=== PATIENT | male | born 1945 | race Caucasian/White ===

== ENCOUNTER 2017-11-24 12:04 | Emergency (ER) | payer MEDICARE, MEDICAID ==
[~2017-11-24] VITALS: Ht 182.9 cm; Wt 81.1 kg
[2017-11-24] MEDS ORDERED: SODIUM CHLORIDE 0.9% 1,000ML IVBOLUS ONE ×2 (13:00→14:00)
[2017-11-24 13:05] LABS: BASOPHILS # (AUTO) 0.06 x10^3/uL (0-0.1); BASOPHILS % (AUTO) 1 % (0-1); EOSINOPHILS # (AUTO) 0.05 x10^3/uL (0-0.4); EOSINOPHILS % (AUTO) 0 % (1-7); LYMPHOCYTES # (AUTO) 1.26 x10^3/uL (1-3.4); LYMPHOCYTES % (AUTO) 11 % (22-44); MD NO; MEAN CORPUSCULAR HEMOGLOBIN 31.4 pg (27.5-34.5); MEAN CORPUSCULAR HGB CONC 33.4 g/dL (33.2-36.2); MEAN CORPUSCULAR VOLUME 94.1 fL (81-97); MEAN PLATELET VOLUME 7.8 fL (7.4-10.4); MONOCYTES # (AUTO) 0.83 x10^3/uL (0.2-0.8); MONOCYTES % (AUTO) 7 % (2-9); NEUTROPHILS # (AUTO) 9.05 x10^3/uL (1.8-6.8); NEUTROPHILS % (AUTO) 81 % (42-75); PLATELET COUNT 258 x10^3/uL (130-400); RED BLOOD COUNT 4.54 x10^6/uL (4.38-5.82); RED CELL DISTRIBUTION WIDTH 13.7 % (9.4-14.8)
[2017-11-24 13:15] LABS: ANION GAP 11 mmol/L (5-15); CALCIUM 8.7 mg/dL (8.5-10.1); CHLORIDE 103 mmol/L (98-107); CREATININE 0.69 mg/dL (0.7-1.3)
[2017-11-24 13:18] LABS: TROPONIN I < 0.015 ng/mL (0.000-0.045)
[2017-11-24 14:12] LABS: RAPID INFLUENZA A Negative (Negative); RAPID INFLUENZA B Negative (Negative)
[2017-11-24] MEDS ORDERED: AZITHROMYCIN 500 MG in SODIUM CHLORIDE 0.9% 250 ML IV ONE (15:00)
[2017-11-24 15:52] VITALS: BP 132/88
== END 2017-11-24 16:31 | disposition home or self-care (01) ==
LOC: ED 14:28
DX: J20.8 Acute bronchitis due to other specified organisms (principal); B96.89 Other specified bacterial agents as the cause of diseases classified elsewhere; I10 Essential (primary) hypertension; F17.200 Nicotine dependence, unspecified, uncomplicated
CPT/HCPCS: 36415; 71045; 80048; 82040; 83605; 84145; 84484; 85025; 87040; 87400; 96361; 96365; 99285; J0456; J7030; J7050

== ENCOUNTER 2018-03-27 14:02 | Emergency (ER) | payer MEDICARE, MEDICAID ==
[~2018-03-27] VITALS: Ht 182.9 cm; Wt 75.1 kg
[2018-03-27 14:13] VITALS: BP 136/81
[2018-03-27 14:37] LABS: BASOPHILS # (AUTO) 0.04 x10^3/uL (0-0.1); BASOPHILS % (AUTO) 0 % (0-1); EOSINOPHILS # (AUTO) 0.01 x10^3/uL (0-0.4); EOSINOPHILS % (AUTO) 0 % (1-7); LYMPHOCYTES # (AUTO) 0.89 x10^3/uL (1-3.4); LYMPHOCYTES % (AUTO) 8 % (22-44); MD NO; MEAN CORPUSCULAR HEMOGLOBIN 31.8 pg (27.5-34.5); MEAN CORPUSCULAR HGB CONC 33.7 g/dL (33.2-36.2); MEAN CORPUSCULAR VOLUME 94.4 fL (81-97); MEAN PLATELET VOLUME 7.5 fL (7.4-10.4); MONOCYTES # (AUTO) 0.39 x10^3/uL (0.2-0.8); MONOCYTES % (AUTO) 3 % (2-9); NEUTROPHILS # (AUTO) 10.16 x10^3/uL (1.8-6.8); NEUTROPHILS % (AUTO) 89 % (42-75); PLATELET COUNT 226 x10^3/uL (130-400); RED BLOOD COUNT 4.57 x10^6/uL (4.38-5.82); RED CELL DISTRIBUTION WIDTH 13.9 % (9.4-14.8)
[2018-03-27 14:46] LABS: ALANINE AMINOTRANSFERASE 49 U/L (12-78); ALBUMIN 3.3 g/dL (3.4-5.0); ANION GAP 8 mmol/L (5-15); CALCIUM 8.6 mg/dL (8.5-10.1); CHLORIDE 105 mmol/L (98-107); CREATININE 1.03 mg/dL (0.7-1.3)
[2018-03-27 14:50] LABS: ALKALINE PHOSPHATASE 72 U/L (45-117); BILIRUBIN,TOTAL 0.3 mg/dL (0.2-1.0); TROPONIN I < 0.015 ng/mL (0.000-0.045)
== END 2018-03-27 15:27 | disposition home or self-care (01) ==
LOC: ED 15:15
DX: J06.9 Acute upper respiratory infection, unspecified (principal); I10 Essential (primary) hypertension; J43.9 Emphysema, unspecified; F17.200 Nicotine dependence, unspecified, uncomplicated
CPT/HCPCS: 36415; 71046; 80053; 83880; 84484; 85025; 93005; 99285

== ENCOUNTER 2018-07-25 08:38 | Emergency (ER) | payer MEDICARE, MEDICAID ==
[~2018-07-25] VITALS: Ht 182.9 cm; Wt 77.0 kg
[2018-07-25] MEDS ORDERED: KETOROLAC 30 MG/1 ML ONE (09:18)
[2018-07-25] MEDS ORDERED: KETOROLAC 30 MG/1 ML IM ONE (09:30)
[2018-07-25 09:44] VITALS: BP 149/83
[2018-07-25 10:19] LABS: BASOPHILS # (AUTO) 0.07 x10^3/uL (0-0.1); BASOPHILS % (AUTO) 1 % (0-1); EOSINOPHILS # (AUTO) 0.19 x10^3/uL (0-0.4); EOSINOPHILS % (AUTO) 2 % (1-7); LYMPHOCYTES % (AUTO) 5 % (22-44); MD NO; MEAN CORPUSCULAR HEMOGLOBIN 31.9 pg (27.5-34.5); MEAN CORPUSCULAR HGB CONC 33.8 g/dL (33.2-36.2); MEAN CORPUSCULAR VOLUME 94.2 fL (81-97); MEAN PLATELET VOLUME 7.8 fL (7.4-10.4); MONOCYTES # (AUTO) 0.27 x10^3/uL (0.2-0.8); MONOCYTES % (AUTO) 3 % (2-9); NEUTROPHILS # (AUTO) 8.68 x10^3/uL (1.8-6.8); NEUTROPHILS % (AUTO) 89 % (42-75); PLATELET COUNT 281 x10^3/uL (130-400); RED BLOOD COUNT 4.86 x10^6/uL (4.38-5.82); RED CELL DISTRIBUTION WIDTH 13.9 % (9.4-14.8)
[2018-07-25 10:21] LABS: ALBUMIN 3.6 g/dL (3.4-5.0); ANION GAP 8 mmol/L (5-15); CALCIUM 8.7 mg/dL (8.5-10.1); CHLORIDE 105 mmol/L (98-107); CREATININE 0.91 mg/dL (0.7-1.3)
[2018-07-25 10:25] LABS: TROPONIN I < 0.015 ng/mL (0.000-0.045)
[2018-07-25] MEDS ORDERED: OMNIPAQUE 350 MG/ML, 100ML BOTTLE ONE (11:03)
== END 2018-07-25 12:45 | disposition home or self-care (01) ==
LOC: ED 12:05
DX: S10.0XXA Contusion of throat, initial encounter (principal); J44.1 Chronic obstructive pulmonary disease with (acute) exacerbation; I10 Essential (primary) hypertension; Z72.9 Problem related to lifestyle, unspecified; W19.XXXA Unspecified fall, initial encounter; Y93.89 Activity, other specified; Y99.8 Other external cause status; Y92.89 Other specified places as the place of occurrence of the external cause
CPT/HCPCS: 36415; 71046; 71275; 80048; 82040; 83880; 84484; 85025; 93005; 96372; 99285; J1885; Q9967

== ENCOUNTER 2019-01-05 05:18 | Inpatient (IN) | payer MEDICARE, MEDICAID ==
[~2019-01-05] VITALS: Ht 182.9 cm; Wt 78.1 kg
--- NOTE | 2019-01-05 05:36 | NUR ---
EKG DONE IN TRIAGE
--- NOTE | 2019-01-05 05:38 | NUR ---
SOB, DIZZY, WEAKNESS X 9 DAYS. COPD 1 PACK A DAY SMOKER. 85%RA PLACED ON O'S IN TRIAGE. EKG DONE IN TRIAGE
[2019-01-05] MEDS ORDERED: FINA5TAB4 PO (05:43)
[2019-01-05] MEDS ORDERED: TRAZ150T62 PO (05:43)
[2019-01-05] MEDS ORDERED: ALBU2TAB PO (05:43)
[2019-01-05] MEDS ORDERED: LISI-170 PO (05:43)
[2019-01-05] MEDS ORDERED: ALBUTEROL/IPRATROPIUM 2.5MG/0.5MG, 3 ML ONE (05:46)
--- NOTE | 2019-01-05 05:55 | NUR ---
rt was paged given ami for suction sputum pt was able to use it RT is at bedside for giving breathing tx
[2019-01-05] MEDS ORDERED: ALBUTEROL/IPRATROPIUM 2.5MG/0.5MG, 3 ML NPPB ONE (06:00)
[2019-01-05] MEDS ORDERED: SODIUM CHLORIDE FLUSH 10ML SYR IVF ONE (06:00)
[2019-01-05] MEDS ORDERED: methylPREDNISolone SOD SUCC 125 MG/2 ML IVP ONE (06:00)
[2019-01-05] MEDS ORDERED: methylPREDNISolone SOD SUCC 125 MG/2 ML ONE (06:10)
--- NOTE | 2019-01-05 06:18 | NUR ---
given meds after breathing tx was done pt is using yanker for suctioning of his sputum after having coughs no sob no distress at this time
[2019-01-05 06:26] LABS: BASOPHILS # (AUTO) 0.04 x10^3/uL (0-0.1); BASOPHILS % (AUTO) 0 % (0-1); EOSINOPHILS % (AUTO) 0 % (1-7); LYMPHOCYTES % (AUTO) 7 % (22-44); MD NO; MEAN CORPUSCULAR HEMOGLOBIN 30.9 pg (27.5-34.5); MEAN CORPUSCULAR HGB CONC 33.5 g/dL (33.2-36.2); MEAN CORPUSCULAR VOLUME 92.3 fL (81-97); MEAN PLATELET VOLUME 7.9 fL (7.4-10.4); MONOCYTES # (AUTO) 0.62 x10^3/uL (0.2-0.8); MONOCYTES % (AUTO) 5 % (2-9); NEUTROPHILS % (AUTO) 88 % (42-75); PLATELET COUNT 263 x10^3/uL (130-400); RED BLOOD COUNT 4.55 x10^6/uL (4.38-5.82); RED CELL DISTRIBUTION WIDTH 15.4 % (9.4-14.8)
--- NOTE | 2019-01-05 06:37 | NUR ---
pt's breathing is heavy informed breathing slow but pt stated coughs made pt's breathing faster pt was unable to control for now
[2019-01-05 06:39] LABS: ALBUMIN 2.6 g/dL (3.4-5.0); ANION GAP 4 mmol/L (5-15); CALCIUM 8.7 mg/dL (8.5-10.1); CHLORIDE 103 mmol/L (98-107); CREATININE 0.72 mg/dL (0.7-1.3)
[2019-01-05 06:42] LABS: TROPONIN I < 0.015 ng/mL (0.000-0.045)
--- NOTE | 2019-01-05 06:45 | NUR ---
given urinal for voiding
--- NOTE | 2019-01-05 06:53 | NUR ---
given report to joaquín huffman
--- NOTE | 2019-01-05 06:57 | NUR ---
BEDSIDE REPORT FROM [place], PT RESTING IN [facility] ON 5LNC, VSS, PT HAS SUCTION AT BEDSIDE USES PRN, NO NEEDS AT THIS TIME.
[2019-01-05] MEDS ORDERED: CEFTRIAXONE PMX 1GM/50ML 50 ML IVPB ONE (07:30)
[2019-01-05] MEDS ORDERED: CEFTRIAXONE PMX 1GM/50ML 50 ML ONE (07:43)
--- NOTE | 2019-01-05 07:49 | NUR ---
REPORT GIVEN TO [place], ROCEPHIN STARTED AFTER BC X2 DRAWN, PT TO FLOOR WITH BEATRIZ STEVENSON.
[2019-01-05 08:05] VITALS: BP 181/105
[2019-01-05] MEDS ORDERED: ONDANSETRON 2MG/ML, 2ML IVPush PRN (09:00)
[2019-01-05] MEDS ORDERED: morphine SULFATE 10 MG/ML, 1ML IVPush PRN (09:00)
[2019-01-05] MEDS ORDERED: PROMETHAZINE 25 MG/ML, 1ML IM PRN (09:00)
[2019-01-05] MEDS ORDERED: BISACODYL 10 MG SUPP PR PRN (09:00)
[2019-01-05] MEDS ORDERED: DOCUSATE 100 MG CAPSULE PO PRN (09:00)
[2019-01-05] MEDS ORDERED: POLYETHYLENE GLYCOL 17 GM PACKET PO PRN (09:00)
[2019-01-05] MEDS ORDERED: LABETALOL 5MG/ML, 20ML IVPush PRN (09:00)
[2019-01-05] MEDS ORDERED: ONDANSETRON ODT 4 MG PO PRN (09:00)
[2019-01-05] MEDS ORDERED: hydrALAzine 20 MG/ML, 1ML IVPush PRN (09:00)
[2019-01-05] MEDS: CEFTRIAXONE PMX 1GM/50ML 50 ML IV ONE ×2 (09:30→12:05)
[2019-01-05] MEDS: ALBUTEROL/IPRATROPIUM 2.5MG/0.5MG, 3 ML NPPB SCH ×3 (09:36→20:28)
[2019-01-05 10:25] VITALS: BP 153/90
[2019-01-05] MEDS: SODIUM CHLORIDE 0.9% 1,000 ML IV SCH ×2 (10:44→22:33)
[2019-01-05] MEDS: AZITHROMYCIN 500 MG in SODIUM CHLORIDE 0.9% 250 ML IV SCH (10:44)
[2019-01-05 11:20] LABS: FREE T4 (FREE THYROXINE) 1.59 ng/dL (0.76-1.46); THYROID STIMULATING HORMONE 0.225 mIU/L (0.358-3.740)
[2019-01-05 11:56] LABS: MICROSCOPIC NOT IND
[2019-01-05 12:04] LABS: CULTURE INDICATED? NO
[2019-01-05] MEDS: OXYcodone IR 5MG TABLET PO PRN (12:04)
[2019-01-05] MEDS: LISINOPRIL 20 MG TABLET PO SCH (12:04)
[2019-01-05] MEDS: FINASTERIDE 5 MG TABLET PO SCH (12:04)
[2019-01-05] MEDS: methylPREDNISolone SOD SUCC 125 MG/2 ML IVPush SCH ×2 (12:05→17:54)
[2019-01-05] MEDS: HEPARIN 5,000 UNITS/ML, 1ML SQ SCH ×2 (12:05→20:02)
[2019-01-05 12:19] VITALS: BP 168/97
[2019-01-05 12:29] LABS: HEMOGLOBIN A1C 5.8 % (4.2-6.3)
[2019-01-05 19:22] VITALS: BP 104/65
[2019-01-05] MEDS: TRAZODONE 150MG TABLET PO SCH (20:02)
[2019-01-05] MEDS: NICOTINE 21 MG/24 HR PATCH.TD24 TD SCH (22:30)
[2019-01-06] MEDS: methylPREDNISolone SOD SUCC 125 MG/2 ML IVPush SCH ×4 (00:09→18:25)
[2019-01-06 01:33] VITALS: BP 97/62
[2019-01-06] MEDS: ACETAMINOPHEN 325 MG TABLET PO PRN (03:42)
[2019-01-06] MEDS: HEPARIN 5,000 UNITS/ML, 1ML SQ SCH ×2 (03:47→13:04)
[2019-01-06 04:58] LABS: BASOPHILS % (AUTO) 0 % (0-1); EOSINOPHILS # (AUTO) 0.22 x10^3/uL (0-0.4); EOSINOPHILS % (AUTO) 3 % (1-7); LYMPHOCYTES % (AUTO) 7 % (22-44); MD NO; MEAN CORPUSCULAR HEMOGLOBIN 30.7 pg (27.5-34.5); MEAN CORPUSCULAR HGB CONC 33.3 g/dL (33.2-36.2); MEAN CORPUSCULAR VOLUME 92.3 fL (81-97); MEAN PLATELET VOLUME 7.8 fL (7.4-10.4); MONOCYTES # (AUTO) 0.29 x10^3/uL (0.2-0.8); MONOCYTES % (AUTO) 4 % (2-9); NEUTROPHILS # (AUTO) 6.66 x10^3/uL (1.8-6.8); NEUTROPHILS % (AUTO) 87 % (42-75); PLATELET COUNT 282 x10^3/uL (130-400); RED BLOOD COUNT 4.14 x10^6/uL (4.38-5.82); RED CELL DISTRIBUTION WIDTH 15.8 % (9.4-14.8)
[2019-01-06 05:09] LABS: ALANINE AMINOTRANSFERASE 38 U/L (12-78); ALBUMIN 2.2 g/dL (3.4-5.0); ANION GAP 6 mmol/L (5-15); CALCIUM 8.8 mg/dL (8.5-10.1); CHLORIDE 107 mmol/L (98-107)
[2019-01-06 05:12] LABS: ALKALINE PHOSPHATASE 82 U/L (45-117); BILIRUBIN,TOTAL 0.3 mg/dL (0.2-1.0); CHOL/HDL RATIO 5.5; CHOLESTEROL, TOTAL 82 mg/dL (140-239); CREATININE 0.72 mg/dL (0.7-1.3); HDL CHOL % 18 % (26-37); HDL CHOLESTEROL (DIRECT) 15 mg/dL (40-60); LDL CHOLESTEROL,CALCULATED 49 mg/dL (54-169); LDL/HDL RATIO 3.3 (0.5-3.0); TOTAL PROTEIN 6.2 g/dL (6.4-8.2); TRIGLYCERIDES 92 mg/dL (50-200); VLDL CHOLESTEROL 18 mg/dL (0-25)
[2019-01-06] MEDS: CEFTRIAXONE PMX 2GM/50ML 50 ML IV SCH (05:47)
[2019-01-06 06:46] VITALS: BP 119/74
[2019-01-06] MEDS: ALBUTEROL/IPRATROPIUM 2.5MG/0.5MG, 3 ML NPPB SCH ×4 (07:00→19:38)
[2019-01-06] MEDS: SODIUM CHLORIDE 0.9% 1,000 ML IV SCH (10:02)
[2019-01-06] MEDS: LISINOPRIL 20 MG TABLET PO SCH (10:02)
[2019-01-06] MEDS: FINASTERIDE 5 MG TABLET PO SCH (10:02)
[2019-01-06] MEDS: OXYcodone IR 5MG TABLET PO PRN (10:03)
[2019-01-06] MEDS: AZITHROMYCIN 500 MG in SODIUM CHLORIDE 0.9% 250 ML IV SCH (10:10)
[2019-01-06 13:31] VITALS: BP 131/74
[2019-01-06] MEDS: TRAZODONE 150MG TABLET PO SCH (19:44)
[2019-01-06] MEDS: NICOTINE 21 MG/24 HR PATCH.TD24 TD SCH (19:44)
[2019-01-06 19:50] VITALS: BP 148/70
[2019-01-07] MEDS: methylPREDNISolone SOD SUCC 125 MG/2 ML IVPush SCH ×4 (00:13→18:21)
[2019-01-07] MEDS: HEPARIN 5,000 UNITS/ML, 1ML SQ SCH ×3 (00:13→18:20)
[2019-01-07 01:30] VITALS: BP 147/69
[2019-01-07] MEDS: ACETAMINOPHEN 325 MG TABLET PO PRN (05:37)
[2019-01-07] MEDS: CEFTRIAXONE PMX 2GM/50ML 50 ML IV SCH (05:37)
[2019-01-07 06:29] VITALS: BP 153/92
[2019-01-07] MEDS: ALBUTEROL/IPRATROPIUM 2.5MG/0.5MG, 3 ML NPPB SCH ×4 (07:45→18:51)
[2019-01-07] MEDS: FINASTERIDE 5 MG TABLET PO SCH (09:37)
[2019-01-07] MEDS: AZITHROMYCIN 500 MG in SODIUM CHLORIDE 0.9% 250 ML IV SCH (09:37)
[2019-01-07] MEDS: LISINOPRIL 20 MG TABLET PO SCH (09:37)
[2019-01-07 13:21] VITALS: BP 167/94
[2019-01-07 14:04] VITALS: BP 153/90
[2019-01-07 19:46] VITALS: BP 152/92
[2019-01-07] MEDS: TRAZODONE 150MG TABLET PO SCH (20:58)
[2019-01-07] MEDS: OXYcodone IR 5MG TABLET PO PRN (20:59)
[2019-01-07] MEDS: NICOTINE 21 MG/24 HR PATCH.TD24 TD SCH (20:59)
[2019-01-07] MEDS: MELATONIN 5 MG TABLET PO PRN (20:59)
[2019-01-08] MEDS: HEPARIN 5,000 UNITS/ML, 1ML SQ SCH ×3 (00:50→17:04)
[2019-01-08] MEDS: methylPREDNISolone SOD SUCC 125 MG/2 ML IVPush SCH ×4 (00:51→17:04)
[2019-01-08 01:46] VITALS: BP 149/91
[2019-01-08] MEDS: ACETAMINOPHEN 325 MG TABLET PO PRN ×2 (02:11→21:00)
[2019-01-08] MEDS: CEFTRIAXONE PMX 2GM/50ML 50 ML IV SCH (05:50)
[2019-01-08] MEDS: ALBUTEROL/IPRATROPIUM 2.5MG/0.5MG, 3 ML NPPB SCH ×4 (06:44→18:45)
[2019-01-08 07:46] VITALS: BP 167/94
[2019-01-08] MEDS: FINASTERIDE 5 MG TABLET PO SCH (08:05)
[2019-01-08] MEDS: LISINOPRIL 20 MG TABLET PO SCH (08:06)
[2019-01-08] MEDS: ASPIRIN 81 MG TABLET CHEW PO SCH (08:06)
[2019-01-08] MEDS: AZITHROMYCIN 500 MG in SODIUM CHLORIDE 0.9% 250 ML IV SCH (08:39)
[2019-01-08 12:46] VITALS: BP 160/91
[2019-01-08 18:15] VITALS: BP 154/87
[2019-01-08] MEDS: TRAZODONE 150MG TABLET PO SCH (20:37)
[2019-01-08] MEDS: NICOTINE 21 MG/24 HR PATCH.TD24 TD SCH (20:37)
[2019-01-08] MEDS: MELATONIN 5 MG TABLET PO PRN (20:37)
[2019-01-09 00:10] VITALS: BP 159/89
[2019-01-09] MEDS: methylPREDNISolone SOD SUCC 125 MG/2 ML IVPush SCH ×4 (00:43→17:43)
[2019-01-09] MEDS: HEPARIN 5,000 UNITS/ML, 1ML SQ SCH ×3 (00:43→17:42)
[2019-01-09] MEDS: CEFTRIAXONE PMX 2GM/50ML 50 ML IV SCH (05:24)
[2019-01-09] MEDS: ALBUTEROL/IPRATROPIUM 2.5MG/0.5MG, 3 ML NPPB SCH ×4 (06:31→19:40)
[2019-01-09 07:00] VITALS: BP 162/93
[2019-01-09 07:46] LABS: ANION GAP 6 mmol/L (5-15); CALCIUM 8.5 mg/dL (8.5-10.1); CHLORIDE 105 mmol/L (98-107)
[2019-01-09 07:48] LABS: BASOPHILS # (AUTO) 0.07 x10^3/uL (0-0.1); BASOPHILS % (AUTO) 1 % (0-1); EOSINOPHILS # (AUTO) 0.06 x10^3/uL (0-0.4); EOSINOPHILS % (AUTO) 1 % (1-7); LYMPHOCYTES # (AUTO) 0.55 x10^3/uL (1-3.4); LYMPHOCYTES % (AUTO) 6 % (22-44); MD NO; MEAN CORPUSCULAR HGB CONC 32.6 g/dL (33.2-36.2); MEAN CORPUSCULAR VOLUME 91.8 fL (81-97); MEAN PLATELET VOLUME 7.5 fL (7.4-10.4); MONOCYTES # (AUTO) 0.48 x10^3/uL (0.2-0.8); MONOCYTES % (AUTO) 5 % (2-9); NEUTROPHILS # (AUTO) 8.47 x10^3/uL (1.8-6.8); NEUTROPHILS % (AUTO) 88 % (42-75); PLATELET COUNT 475 x10^3/uL (130-400); RED BLOOD COUNT 4.48 x10^6/uL (4.38-5.82); RED CELL DISTRIBUTION WIDTH 15.7 % (9.4-14.8)
[2019-01-09] MEDS: LISINOPRIL 20 MG TABLET PO SCH (08:57)
[2019-01-09] MEDS: ASPIRIN 81 MG TABLET CHEW PO SCH (08:57)
[2019-01-09] MEDS: FINASTERIDE 5 MG TABLET PO SCH (08:58)
[2019-01-09] MEDS: AZITHROMYCIN 500 MG in SODIUM CHLORIDE 0.9% 250 ML IV SCH (10:36)
[2019-01-09] MEDS ORDERED: OMNIPAQUE 350 MG/ML, 100ML BOTTLE ONE (11:25)
[2019-01-09] MEDS ORDERED: LISI-170 PO ×3 (11:49→13:02)
[2019-01-09] MEDS ORDERED: PRED10TA PO (11:49)
[2019-01-09] MEDS ORDERED: CEFD300C37 PO (11:50)
[2019-01-09] MEDS ORDERED: DOXY100T PO (11:50)
[2019-01-09 12:37] VITALS: BP 161/84
[2019-01-09] MEDS ORDERED: BUDE10.2 INH (13:02)
[2019-01-09] MEDS ORDERED: TIOT18CA INH (13:02)
[2019-01-09 19:29] VITALS: BP 105/66
[2019-01-09] MEDS: NICOTINE 21 MG/24 HR PATCH.TD24 TD SCH (21:08)
[2019-01-09] MEDS: TRAZODONE 150MG TABLET PO SCH (21:08)
[2019-01-09] MEDS: MELATONIN 5 MG TABLET PO PRN (21:08)
[2019-01-09] MEDS: ACETAMINOPHEN 325 MG TABLET PO PRN (21:08)
[2019-01-10 00:38] VITALS: BP 146/90
[2019-01-10] MEDS: methylPREDNISolone SOD SUCC 125 MG/2 ML IVPush SCH ×3 (00:53→12:50)
[2019-01-10] MEDS: HEPARIN 5,000 UNITS/ML, 1ML SQ SCH ×3 (00:53→15:32)
[2019-01-10] MEDS: ACETAMINOPHEN 325 MG TABLET PO PRN ×2 (04:48→16:14)
[2019-01-10] MEDS: CEFTRIAXONE PMX 2GM/50ML 50 ML IV SCH (05:30)
[2019-01-10 06:59] VITALS: BP 150/89
[2019-01-10] MEDS: ALBUTEROL/IPRATROPIUM 2.5MG/0.5MG, 3 ML NPPB SCH ×3 (07:00→14:38)
[2019-01-10] MEDS: FINASTERIDE 5 MG TABLET PO SCH (07:53)
[2019-01-10] MEDS: CEFDINIR 300 MG CAPSULE PO SCH ×2 (07:53→19:30)
[2019-01-10] MEDS: LISINOPRIL 20 MG TABLET PO SCH (07:54)
[2019-01-10] MEDS: ASPIRIN 81 MG TABLET CHEW PO SCH (07:54)
[2019-01-10] MEDS ORDERED: DOXYCYCLINE 100MG TABLET PO SCH (09:00)
[2019-01-10 14:00] VITALS: BP 168/97
[2019-01-10] MEDS ORDERED: TRAZODONE 150MG TABLET PO SCH (21:00)
== END 2019-01-10 19:00 | disposition home or self-care (01) | DRG 871 ==
LOC: ED 07:07 → EDIP 07:09 → 3NE 07:58
PROVIDERS: ADMIT Internal Medicine; ATTEND Internal Medicine
DX: A41.9 Sepsis, unspecified organism (principal); J18.9 Pneumonia, unspecified organism; J96.01 Acute respiratory failure with hypoxia; J44.0 Chronic obstructive pulmonary disease with (acute) lower respiratory infection; I50.30 Unspecified diastolic (congestive) heart failure; J44.1 Chronic obstructive pulmonary disease with (acute) exacerbation; D64.9 Anemia, unspecified; F17.200 Nicotine dependence, unspecified, uncomplicated; R91.1 Solitary pulmonary nodule; I11.0 Hypertensive heart disease with heart failure; N40.1 Benign prostatic hyperplasia with lower urinary tract symptoms; R33.8 Other retention of urine; Z71.51 Drug abuse counseling and surveillance of drug abuser; Z79.899 Other long term (current) drug therapy
CPT/HCPCS: 36415; 71045; 71275; 80048; 80053; 80061; 81003; 82040; 83036; 83605; 83735; 83880; 84145; 84439; 84443; 84484; 85025; 85379; 87040; 87070; 87107; 87205; 93005; 93306; 94640; 94664; 96374; 96375; 99285; G0378; J0456; J0696; J1644; J7620; Q9967; J2930; J7030; J7050; J7512

== ENCOUNTER 2019-11-28 13:02 | Emergency (ER) | payer MEDICARE, MEDICAID ==
[~2019-11-28] VITALS: Ht 182.9 cm; Wt 75.3 kg
[~2019-11-28 13:02] MED LIST: ALBU2TAB PO; BUDE10.2 INH; CEFD300C37 PO; DOXY100T PO; FINA5TAB4 PO; LISI-170 PO; PRED10TA PO; TIOT18CA INH; TRAZ150T62 PO
--- NOTE | 2019-11-28 13:42 | NUR ---
Pt here for left sided rib pain, pt reports he has had for about 5 days with a productive cough. Pt reports no trauma but has had new onset of sob that is more abnormal for him. Pt placed on all monitors and awaiting further orders.
[2019-11-28] MEDS ORDERED: SODIUM CHLORIDE FLUSH 10ML SYR IVF ONE (14:00)
[2019-11-28] MEDS ORDERED: SODIUM CHLORIDE 0.9% 1,000ML IVBOLUS ONE (14:00)
--- NOTE | 2019-11-28 14:02 | NUR ---
XRAY IN ROOM AT THIS TIME.
--- NOTE | 2019-11-28 14:20 | NUR ---
PT MEDICATED PER EMAR. PT TOLERATED WELL.
[2019-11-28 14:39] LABS: BASOPHILS # (AUTO) 0.01 x10^3/uL (0-0.1); BASOPHILS % (AUTO) 0 % (0-1); EOSINOPHILS # (AUTO) 0.02 x10^3/uL (0-0.4); EOSINOPHILS % (AUTO) 0 % (1-7); LYMPHOCYTES # (AUTO) 0.82 x10^3/uL (1-3.4); LYMPHOCYTES % (AUTO) 7 % (22-44); MD NO; MEAN CORPUSCULAR HEMOGLOBIN 29.5 pg (27.5-34.5); MEAN CORPUSCULAR HGB CONC 32.5 g/dL (33.2-36.2); MEAN CORPUSCULAR VOLUME 90.9 fL (81-97); MEAN PLATELET VOLUME 7.9 fL (7.4-10.4); MONOCYTES # (AUTO) 0.87 x10^3/uL (0.2-0.8); MONOCYTES % (AUTO) 8 % (2-9); NEUTROPHILS # (AUTO) 9.66 x10^3/uL (1.8-6.8); NEUTROPHILS % (AUTO) 85 % (42-75); PLATELET COUNT 262 x10^3/uL (130-400); RED BLOOD COUNT 4.47 x10^6/uL (4.38-5.82); RED CELL DISTRIBUTION WIDTH 15.8 % (9.4-14.8)
[2019-11-28 14:50] LABS: ALBUMIN 2.9 g/dL (3.4-5.0); ANION GAP 5 mmol/L (5-15); CALCIUM 8.9 mg/dL (8.5-10.1); CHLORIDE 99 mmol/L (98-107)
[2019-11-28 14:56] LABS: ALANINE AMINOTRANSFERASE 59 U/L (12-78); ALKALINE PHOSPHATASE 92 U/L (45-117); BILIRUBIN,TOTAL 0.5 mg/dL (0.2-1.0); CREATININE 0.94 mg/dL (0.7-1.3); TOTAL PROTEIN 7.3 g/dL (6.4-8.2); TROPONIN I < 0.015 ng/mL (0.000-0.045)
--- NOTE | 2019-11-28 15:00 | NUR ---
NS INFUSING AT THIS TIME. PT TOLERATED WELL.
--- NOTE | 2019-11-28 15:49 | NUR ---
PT AMB TO BR WITH STEADY GAIT.
--- NOTE | 2019-11-28 15:59 | NUR ---
PT REQUESTING PAIN MED. EDMD NOTIFIED.
[2019-11-28] MEDS ORDERED: KETOROLAC 30 MG/1 ML IVPush ONE (16:00)
[2019-11-28] MEDS ORDERED: KETOROLAC 30 MG/1 ML ONE (16:01)
--- NOTE | 2019-11-28 16:03 | NUR ---
PT MEDICATED PER EMAR. PT TOELRATED WELL.
[2019-11-28 16:04] VITALS: BP 169/113
--- NOTE | 2019-11-28 16:46 | NUR ---
PT REFUSED EKG AND STATES"I WANNA GO HOME NOW.I DON'T WANNA BE HERE ANYMORE." EDMD NOTIFIED. PT SIGNED AMA.
[2019-11-28] MEDS ORDERED: METOPROLOL 1 MG/ML, 5ML IVPush PRN (17:00)
== END 2019-11-28 16:47 | disposition left against medical advice (07) ==
LOC: ED 14:23
DX: R07.89 Other chest pain (principal); R00.0 Tachycardia, unspecified; R06.09 Other forms of dyspnea; J43.9 Emphysema, unspecified; I10 Essential (primary) hypertension; F17.200 Nicotine dependence, unspecified, uncomplicated
CPT/HCPCS: 36415; 71045; 80053; 83605; 83880; 84484; 85025; 85379; 87040; 93005; 96374; 99284; J1885; J7030; J7512

== ENCOUNTER 2019-12-01 11:42 | Inpatient (IN) | payer MEDICARE, MEDICAID ==
[~2019-12-01] VITALS: Ht 182.9 cm; Wt 75.7 kg
--- NOTE | 2019-12-01 11:54 | NUR ---
NATIVIDAD ALVARADO (FRIEND) [phone]
[2019-12-01 12:44] LABS: BASOPHILS # (AUTO) 0.02 x10^3/uL (0-0.1); BASOPHILS % (AUTO) 0 % (0-1); EOSINOPHILS # (AUTO) 0.11 x10^3/uL (0-0.4); EOSINOPHILS % (AUTO) 1 % (1-7); LYMPHOCYTES # (AUTO) 1.08 x10^3/uL (1-3.4); LYMPHOCYTES % (AUTO) 10 % (22-44); MD NO; MEAN CORPUSCULAR HEMOGLOBIN 29.7 pg (27.5-34.5); MEAN CORPUSCULAR HGB CONC 33.2 g/dL (33.2-36.2); MEAN CORPUSCULAR VOLUME 89.7 fL (81-97); MEAN PLATELET VOLUME 7.9 fL (7.4-10.4); MONOCYTES % (AUTO) 4 % (2-9); NEUTROPHILS # (AUTO) 8.86 x10^3/uL (1.8-6.8); NEUTROPHILS % (AUTO) 85 % (42-75); PLATELET COUNT 308 x10^3/uL (130-400); RED BLOOD COUNT 4.18 x10^6/uL (4.38-5.82); RED CELL DISTRIBUTION WIDTH 16.2 % (9.4-14.8)
[2019-12-01 12:48] LABS: INTERNATIONAL NORMALIZED RATIO 1.01 (0.93-1.1); PROTHROMBIN TIME 10.7 Seconds (9.6-11.5)
[2019-12-01 12:52] LABS: ALANINE AMINOTRANSFERASE 100 U/L (12-78); ALBUMIN 2.3 g/dL (3.4-5.0); ANION GAP 6 mmol/L (5-15); CALCIUM 8.4 mg/dL (8.5-10.1); CHLORIDE 103 mmol/L (98-107); CREATININE 0.66 mg/dL (0.7-1.3)
[2019-12-01 12:55] LABS: ALKALINE PHOSPHATASE 112 U/L (45-117); BILIRUBIN,TOTAL 0.5 mg/dL (0.2-1.0); TOTAL PROTEIN 6.8 g/dL (6.4-8.2); TROPONIN I < 0.015 ng/mL (0.000-0.045)
--- NOTE | 2019-12-01 13:16 | NUR ---
RECEIVED REPORT FROM DORA. PT UPRIGHT ON GURNEY AWAKE & CALM, RESPONDS APPROP TO STAFF, NO NEEDS AT THIS TIME, COMFORT MEASURES PROVIDED, CALL LIGHT WITHIN REACH.
--- NOTE | 2019-12-01 13:26 | NUR ---
PT TO CTA
[2019-12-01] MEDS ORDERED: OMNIPAQUE 350 MG/ML, 100ML BOTTLE ONE (13:42)
--- NOTE | 2019-12-01 14:03 | NUR ---
PT REMAINS UPRIGHT ON GURNEY AWAKE & CALM, RESPONDS APPROP TO STAFF, NO NEEDS AT THIS TIME, COMFORT MEASURES PROVIDED, CALL LIGHT WITHIN REACH.
[2019-12-01] MEDS ORDERED: METOPROLOL TARTRATE 25 MG TABLET ONE (14:24)
[2019-12-01] MEDS ORDERED: CEFTRIAXONE PMX 1GM/50ML 50 ML ONE (14:24)
[2019-12-01] MEDS ORDERED: AZITHROMYCIN 500 MG TABLET ONE (14:25)
[2019-12-01] MEDS ORDERED: AZITHROMYCIN 500 MG TABLET PO ONE (14:30)
[2019-12-01] MEDS ORDERED: METOPROLOL SUCCINATE 25 MG TAB.ER.24H PO ONE (14:30)
[2019-12-01] MEDS ORDERED: CEFTRIAXONE PMX 1GM/50ML 50 ML IVPB ONE (14:30)
--- NOTE | 2019-12-01 15:04 | NUR ---
PT UPRIGHT ON GURNEY AWAKE & COMFORTABLE, WATCHING TV, RESPONDS APPROP TO STAFF, NAD, COMFORT MEASURES PROVIDED, CALL LIGHT WITHIN REACH.
--- NOTE | 2019-12-01 15:40 | NUR ---
Pt to be admitted to card-tele, room 504. Report called to Kathryn.
--- NOTE | 2019-12-01 16:02 | NUR ---
PT REMAINS UPRIGHT ON GURNEY AWAKE & COMFORTABLE, WATCHING TV, RESPONDS APPROP TO STAFF, NAD, COMFORT MEASURES PROVIDED, CALL LIGHT WITHIN REACH.
[2019-12-01] MEDS ORDERED: QUET25TA5 PO (16:41)
[2019-12-01] MEDS ORDERED: GABA-826 PO (16:41)
[2019-12-01 16:42] VITALS: BP 159/98
[2019-12-01] MEDS ORDERED: PROMETHAZINE 25 MG/ML, 1ML IM PRN (17:30)
[2019-12-01] MEDS ORDERED: DOCUSATE 100 MG CAPSULE PO PRN (17:30)
[2019-12-01] MEDS ORDERED: POLYETHYLENE GLYCOL 17 GM PACKET PO PRN (17:30)
[2019-12-01] MEDS ORDERED: ACETAMINOPHEN 325 MG TABLET PO PRN (17:30)
[2019-12-01] MEDS ORDERED: DILTIAZEM 5 MG/ML, 5ML IVPush PRN (17:30)
[2019-12-01] MEDS ORDERED: ONDANSETRON 2MG/ML, 2ML IVPush PRN (17:30)
[2019-12-01] MEDS ORDERED: BISACODYL 10 MG SUPP PR PRN (17:30)
[2019-12-01] MEDS ORDERED: POTASSIUM CHLORIDE 20 MEQ TAB.ER.PRT PO ONE (18:00)
[2019-12-01 18:23] VITALS: BP 153/90
[2019-12-01] MEDS: ENOXAPARIN 40 MG/0.4 ML SQ SCH (18:32)
[2019-12-01] MEDS: methylPREDNISolone SOD SUCC 125 MG/2 ML IVPush SCH (18:32)
[2019-12-01] MEDS: DOXYCYCLINE 100 MG in DEXTROSE 5% 250 ML IV SCH (18:32)
[2019-12-01 18:47] LABS: TROPONIN I < 0.015 ng/mL (0.000-0.045)
[2019-12-01 19:19] LABS: RAPID INFLUENZA A Negative (Negative); RAPID INFLUENZA B Negative (Negative)
[2019-12-01] MEDS ORDERED: ALBUTEROL/IPRATROPIUM 2.5MG/0.5MG, 3 ML ONE (20:36)
[2019-12-01] MEDS: LISINOPRIL 20 MG TABLET PO SCH (21:52)
[2019-12-01] MEDS: QUETIAPINE 25MG TABLET PO SCH (21:52)
[2019-12-01] MEDS: GABAPENTIN 100 MG CAPSULE PO SCH (21:52)
[2019-12-01 23:58] LABS: TROPONIN I < 0.015 ng/mL (0.000-0.045)
[2019-12-02 00:47] VITALS: BP 126/83
[2019-12-02] MEDS: methylPREDNISolone SOD SUCC 125 MG/2 ML IVPush SCH ×5 (00:49→20:12)
[2019-12-02 04:52] LABS: BASOPHILS % (AUTO) 0 % (0-1); EOSINOPHILS % (AUTO) 0 % (1-7); LYMPHOCYTES # (AUTO) 0.56 x10^3/uL (1-3.4); LYMPHOCYTES % (AUTO) 9 % (22-44); MD NO; MEAN CORPUSCULAR HEMOGLOBIN 29.5 pg (27.5-34.5); MEAN CORPUSCULAR HGB CONC 32.5 g/dL (33.2-36.2); MEAN CORPUSCULAR VOLUME 90.9 fL (81-97); MEAN PLATELET VOLUME 7.8 fL (7.4-10.4); MONOCYTES # (AUTO) 0.05 x10^3/uL (0.2-0.8); MONOCYTES % (AUTO) 1 % (2-9); NEUTROPHILS # (AUTO) 5.68 x10^3/uL (1.8-6.8); NEUTROPHILS % (AUTO) 90 % (42-75); PLATELET COUNT 355 x10^3/uL (130-400); RED BLOOD COUNT 4.54 x10^6/uL (4.38-5.82); RED CELL DISTRIBUTION WIDTH 16.7 % (9.4-14.8)
[2019-12-02 04:57] LABS: CHLORIDE 105 mmol/L (98-107)
[2019-12-02 05:12] LABS: ALANINE AMINOTRANSFERASE 110 U/L (12-78); ALBUMIN 2.5 g/dL (3.4-5.0); ALKALINE PHOSPHATASE 125 U/L (45-117); ANION GAP 6 mmol/L (5-15); BILIRUBIN,TOTAL 0.6 mg/dL (0.2-1.0); CALCIUM 9.1 mg/dL (8.5-10.1); CREATININE 0.82 mg/dL (0.7-1.3); TOTAL PROTEIN 7.6 g/dL (6.4-8.2)
[2019-12-02] MEDS: DOXYCYCLINE 100 MG in DEXTROSE 5% 250 ML IV SCH ×2 (06:11→17:44)
[2019-12-02] MEDS: BUDESONIDE 0.5 MG/2 ML INHA NPPB SCH ×2 (06:50→20:40)
[2019-12-02] MEDS ORDERED: ALBUTEROL/IPRATROPIUM 2.5MG/0.5MG, 3 ML NPPB SCH (07:00)
[2019-12-02 07:25] VITALS: BP 132/82
[2019-12-02] MEDS: LISINOPRIL 20 MG TABLET PO SCH ×2 (07:54→20:12)
[2019-12-02] MEDS ORDERED: ARIP5TAB13 PO (13:12)
[2019-12-02] MEDS ORDERED: DULO60CA7 PO (13:12)
[2019-12-02] MEDS: DULOXETINE 30 MG CAPSULE.DR PO SCH (13:36)
[2019-12-02] MEDS: ALBUTEROL/IPRATROPIUM 2.5MG/0.5MG, 3 ML NPPB SCH ×2 (14:45→20:40)
[2019-12-02 15:00] VITALS: BP 149/83
[2019-12-02] MEDS ORDERED: LORazepam 2 MG/ML, 1ML ONE (15:55)
[2019-12-02] MEDS: LORazepam 2 MG/ML, 1ML IVPush PRN (16:10)
[2019-12-02] MEDS: ENOXAPARIN 40 MG/0.4 ML SQ SCH (16:27)
[2019-12-02] MEDS: CEFTRIAXONE PMX 1GM/50ML 50 ML IV SCH (16:27)
[2019-12-02] MEDS: ARIPIPRAZOLE 5 MG TABLET PO SCH (16:27)
[2019-12-02 19:08] VITALS: BP 139/87
[2019-12-02] MEDS: GABAPENTIN 100 MG CAPSULE PO SCH ×2 (20:13→22:51)
[2019-12-02] MEDS: QUETIAPINE 25MG TABLET PO SCH (20:13)
[2019-12-02] MEDS ORDERED: QUETIAPINE 25MG TABLET PO ONE (20:30)
[2019-12-02] MEDS ORDERED: NICOTINE 21 MG/24 HR PATCH.TD24 TD SCH (21:00)
[2019-12-03 01:02] VITALS: BP 146/89
[2019-12-03] MEDS: methylPREDNISolone SOD SUCC 125 MG/2 ML IVPush SCH ×2 (01:54→08:00)
[2019-12-03] MEDS: ALBUTEROL/IPRATROPIUM 2.5MG/0.5MG, 3 ML NPPB SCH ×3 (03:00→15:00)
[2019-12-03] MEDS: DOXYCYCLINE 100 MG in DEXTROSE 5% 250 ML IV SCH (06:32)
[2019-12-03 08:00] VITALS: BP 139/92
[2019-12-03] MEDS: DULOXETINE 30 MG CAPSULE.DR PO SCH (08:00)
[2019-12-03] MEDS: LISINOPRIL 20 MG TABLET PO SCH (08:00)
[2019-12-03] MEDS: LORazepam 2 MG/ML, 1ML IVPush PRN (08:00)
[2019-12-03] MEDS: ARIPIPRAZOLE 5 MG TABLET PO SCH (08:00)
[2019-12-03] MEDS: BUDESONIDE 0.5 MG/2 ML INHA NPPB SCH (09:00)
[2019-12-03 13:48] VITALS: BP 122/64
[2019-12-03] MEDS: CEFTRIAXONE PMX 1GM/50ML 50 ML IV SCH (14:54)
[2019-12-03] MEDS: ENOXAPARIN 40 MG/0.4 ML SQ SCH (16:07)
[2019-12-03] MEDS ORDERED: methylPREDNISolone SOD SUCC 125 MG/2 ML IVPush SCH (20:00)
== END 2019-12-03 17:54 | disposition left against medical advice (07) | DRG 193 ==
LOC: ED 14:12 → EDIP 14:13 → ED 14:37 → 5SO 16:52
PROVIDERS: ADMIT Internal Medicine; ATTEND Hospitalist
DX: J18.9 Pneumonia, unspecified organism (principal); J96.21 Acute and chronic respiratory failure with hypoxia; J44.0 Chronic obstructive pulmonary disease with (acute) lower respiratory infection; J44.1 Chronic obstructive pulmonary disease with (acute) exacerbation; I48.91 Unspecified atrial fibrillation; E88.09 Other disorders of plasma-protein metabolism, not elsewhere classified; D63.8 Anemia in other chronic diseases classified elsewhere; E87.6 Hypokalemia; F17.210 Nicotine dependence, cigarettes, uncomplicated; G62.9 Polyneuropathy, unspecified; Z60.2 Problems related to living alone; F32.9 Major depressive disorder, single episode, unspecified; Z53.29 Procedure and treatment not carried out because of patient's decision for other reasons; I10 Essential (primary) hypertension; N40.0 Benign prostatic hyperplasia without lower urinary tract symptoms; Z82.49 Family history of ischemic heart disease and other diseases of the circulatory system; Z83.3 Family history of diabetes mellitus; Z86.73 Personal history of transient ischemic attack (TIA), and cerebral infarction without residual deficits; Z99.81 Dependence on supplemental oxygen; Z79.899 Other long term (current) drug therapy
CPT/HCPCS: 36415; 71045; 71275; 80053; 83605; 83735; 83880; 84145; 84443; 84484; 85025; 85379; 85610; 87040; 87070; 87205; 87400; 93005; 93306; 93356; 94640; 96365; G0378; J0696; J1650; J7060; J7620; J7626; Q9967; J2060; J2930